=== PATIENT | female | born 1950 | race Caucasian/White ===

== ENCOUNTER 2017-01-27 21:10 | Emergency (ER) | payer MEDICARE, OTHER ==
[~2017-01-27 21:10] MED LIST: ALBUTEROL17 GM; ANTIOXIDANT FO1 EAC1 PO; ARIMIDEX1 MG; AVAPRO75 MG; CENTRUM COMPLE1 EAC1 PO; CIPRO500 MG; CO Q-10100 M2 PO; COLACE100 MG; COMPAZINE10 M; CYMBALTA60 MG PO; FISH OIL 1,0001 EA10 PO; GLUCOSAMINE1000 M1 PO; LISINOPRIL10 MG; NORCO 5/325 TAB1 TAB PO; NORVASC10 MG; NORVASC10 MG PO; PREPARATION H C54 GM; PRILOSEC OTC20 MG; PRILOSEC20 MG; PROBIOTIC1 EA10 PO; PROTONIX40 MG; SOTALOL80 M1 PO; SOTALOL80 MG PO; TUMS500 MG; TYLENOL325 M2 PO; TYLENOL325 MG PO; ULTRAM50 MG PO; VASOTEC5 MG PO; [UNRECOGNIZED DRUG - OTHER]; [UNRECOGNIZED DRUG - OTHER]
== END 2017-01-27 22:47 ==
LOC: EDMED 21:10
DX: S93.402A Sprain of unspecified ligament of left ankle, initial encounter (principal); I48.91 Unspecified atrial fibrillation; Z85.3 Personal history of malignant neoplasm of breast; Z90.49 Acquired absence of other specified parts of digestive tract; Z90.89 Acquired absence of other organs; Z79.899 Other long term (current) drug therapy; X50.1XXA Overexertion from prolonged static or awkward postures, initial encounter; Y93.01 Activity, walking, marching and hiking; Y92.019 Unspecified place in single-family (private) house as the place of occurrence of the external cause; Y99.8 Other external cause status